=== PATIENT | female | born 1990 | race Caucasian/White ===

== ENCOUNTER 2018-04-16 11:30 | Emergency (ER) | payer OTHER ==
[~2018-04-16] VITALS: Ht 154.9 cm; Wt 47.6 kg
== END 2018-04-16 13:39 | disposition home or self-care (01) ==
LOC: ER 11:30
DX: S71.121A Laceration with foreign body, right thigh, initial encounter (principal); W26.8XXA Contact with other sharp object(s), not elsewhere classified, initial encounter; Y93.89 Activity, other specified; Y92.89 Other specified places as the place of occurrence of the external cause; Y99.8 Other external cause status